=== PATIENT | male | born 1940 | race Caucasian/White ===

== ENCOUNTER → 2020-06-02 | Outpatient (CLI) | payer OTHER ==
[~2020-06-02] MED LIST: FLOMAX0.4 MG PO; GLIMEPIRIDE1 MG PO; LORAZEPAM 1 MG T1 MG PO; METFORMIN HCL1000 MG PO; NEURIVA DE-STR1 EACH PO; OMEPRAZOLE40 MG PO; SIMVASTATIN40 MG PO; TRAZODONE HCL50 MG PO; VITAMIN C1000 MG PO
== END ==
LOC: LAB 08:52
PROVIDERS: ATTEND Orthopaedic Surgery
DX: Z01.812 Encounter for preprocedural laboratory examination (principal); Z20.822 Contact with and (suspected) exposure to COVID-19

== ENCOUNTER 2020-06-07 08:56 | Observation (INO) | payer OTHER ==
[2020-06-02 09:07] LABS: HEMOGLOBIN 14.3 gm/dL (14.0-18.0); MCH 30.5 pg (26.0-34.0); MCHC 33.2 g/dL (28.0-37.0); MCV 91.9 fL (80.0-100.0); RBC 4.68 mil/uL (4.50-6.00); RDW 13.7 % (10.5-14.5); WBC 5.5 thou/uL (4.0-11.0)
[2020-06-02 09:13] LABS: CALCIUM 9.5 mg/dL (8.5-10.1); CREATININE 1.3 mg/dL (0.7-1.3)
[2020-06-02 09:29] LABS: URINE BILIRUBIN NEGATIVE (Negative); URINE BLOOD NEGATIVE (Negative); URINE CLARITY CLEAR; URINE COLOR YELLOW; URINE GLUCOSE-RANDOM* NEGATIVE (Negative); URINE KETONES NEGATIVE (Negative); URINE LEUKOCYTES-REFLEX NEGATIVE (Negative); URINE NITRITE-REFLEX NEGATIVE (Negative); URINE PROTEIN (DIPSTICK) NEGATIVE (Negative); URINE SPECIFIC GRAVITY 1.025 (1.005-1.035); URINE UROBILINOGEN 0.2 E.U./dl (0.2-1.0)
[2020-06-02 14:51] LABS: PROTIME 10.3 Seconds (9.3-11.4)
[2020-06-02 15:11] LABS: INR < 0.9
[2020-06-03 20:33] LABS: GLYCOHEMOGLOBIN (HGB A1C) 6.2 % (4.8-5.6)
[~2020-06-07] VITALS: Ht 162.6 cm; Wt 64.4 kg
--- NOTE | ~2020-06-07 | O ---
[facility] [place] [address] OPERATIVE REPORT Name: CAMILA MILES Room #: 448-P REG [facility] M.R.#: [id number] Admission: 06/07/20 Attend Phys: Jones Mclaughlin MD Discharge: Date of : 44 Report #: [id number] THIS REPORT FOR: cc: Chandler Shaw MD, James M. MD Abraham, Scott M. MD ~ DATE OF SERVICE: 06/07/2020 PREOPERATIVE DIAGNOSIS: Left knee osteoarthritis. POSTOPERATIVE DIAGNOSIS: Left knee osteoarthritis. PROCEDURE: Left total knee arthroplasty using Navio robotic program assistant. SURGEON: Jones Mclaughlin MD TWISTHAND: Jayne Simons PA-C INDICATIONS FOR TWISTHAND: Throughout the case, extensive retraction and manipulation of the knee was required. This was afforded to me by my program assistant. ANESTHESIA: LMA with adductor canal block. IMPLANTS: [employer]hew size 5 Journey II BCS cobalt chrome femur, size 3 tibia, size 12 polyethylene, size 35 patella. TOURNIQUET TIME: 56 minutes. ESTIMATED BLOOD LOSS: 25 mL COMPLICATIONS: None. SPECIMENS: None. CONDITION UPON LEAVING THE OPERATING ROOM: Stable. INDICATIONS FOR PROCEDURE: The patient is a 80-year-old gentleman with severe left knee varus osteoarthritis and failed conservative measures for this, and after discussion with him, he elected for left total knee arthroplasty. DESCRIPTION OF PROCEDURE: Risks, benefits, alternatives, complications were discussed in detail with the patient including but not limited to risk of anesthesia, risk of damage to nerves, arteries, blood vessels, risk for infection, bleeding, risk for continued knee pain, need for reoperation. Informed consent was obtained from the patient. Left knee was appropriately [address] [address] OPERATIVE REPORT Name: CAMILA MILES Room #: 448-P [facility] Maria Luisa.#: [id number] Admission: 06/07/20 Attend Phys: Jones Mclaughlin MD Discharge: Date of : 44 Report #: [id number] marked in the preoperative holding area. IV Ancef was given for preoperative antibiotics. He was brought to the operating room and placed in supine position on operating room table. LMA anesthesia was induced without complication. Tourniquet was placed on the left thigh. Left lower extremity was prepped and draped in normal sterile fashion. Timeout was performed properly identifying the patient and procedure as well as instrumentation. All in the operating room were in agreement. Left lower extremity was exsanguinated, tourniquet was inflated. Tourniquet time was 56 minutes. Standard midline approach to the knee was made with 10-blade through the skin. Dissection was taken down sharply to the fascia and deep flaps were developed medially and laterally. Fresh 10-blade was used to make a medial parapatellar arthrotomy and the knee was inspected. There was severe medial compartment osteoarthritis with moderate lateral and patellofemoral osteoarthritis. ACL and PCL were removed sharply. Reference pins were placed in the femur and the tibia. The knee was digitally mapped using the [employer] robotic system. Intraoperative plan was made and we sized the size 5 femur and a size 3 tibia and a 10 spacer. After acceptance of the intraoperative plan, the distal femoral cut was made with a Navio bur. Distal femoral cutting block was pinned in place and chamfer cuts were made. Attention was turned to the tibia. Remainder of the menisci removed with Bovie cautery. Tibial resection guide was pinned in place using the Navio for placement and tibial resection was made. Flexion and extension gaps were then checked and found to be tight medially in flexion and extension. A limited medial release was performed using the pie crust technique and this balanced the knee well. Tibia was sized, found to be a size 3. Size 3 tibial trial was placed, pinned and punched. Size 5 femoral trial was placed and box cut was made. This was then trialed with a size 10 up to a size 12 polyethylene and size 12 polyethylene demonstrated 1-2 millimeter of laxity medially and laterally throughout range of motion of the knee. A 9 mm of bone was resected from the posterior surface of the patella and a size 35 patellar trial button was placed. Knee was taken through range of motion, found to be stable, found to have good patellar tracking. Trial components were removed. Bony ends were thoroughly irrigated with normal saline. A final size 3 tibia, size 5 Journey II BCS cobalt chrome femur and a size 35 patella were cemented in place using standard cementation techniques. While the cement cured, periarticular injection consisting of morphine, ropivacaine, epinephrine, Toradol was placed around the knee joint capsule. After the cement cured, tourniquet was deflated. Hemostasis was obtained with Bovie cautery. A final size 12 polyethylene was placed. Preoperative vancomycin was placed deep in the joint. Fascia was closed with 0 Vicryl. Skin was closed with 2-0 Vicryl, 3-0 Monocryl. Dermabond and a JOSS dressing was applied. The patient tolerated this procedure well and went to recovery room under care of anesthesia postoperatively. By: 06 23 Jones Mclaughlin MD /nt
[2020-06-07 12:15] VITALS: BP 136/84
[2020-06-07 14:07] VITALS: BP 118/88
--- NOTE | 2020-06-07 15:32 | NUR ---
Pt transferred from recovery room approx 1500. Dressing c/d/i. BOBBY hose and SCDs in place. Polar care in place. Pt denies pain at this time. Pt worked with physical therapy and ambulated in the hallway. IVF infusing. Family at bedside. Admission completed. Fall precautions in place. WIll continue to monitor.
[2020-06-07 19:17] VITALS: BP 119/75
--- NOTE | 2020-06-08 00:14 | NUR ---
ASSESSMENT COMPLETED, PT IS VERY PLEASANT AND COOPERATIVE, DENIES PAIN. VOIDING PER URINAL. AFEBRILE. JOSS DRSG AND TEDS IN PLACE. FLUIDS INFUSING. PROGRESSING TOWARDS CARE GOALS.
[2020-06-08 02:51] VITALS: BP 107/62
[2020-06-08 04:44] VITALS: BP 108/71
[2020-06-08 05:00] LABS: HEMATOCRIT 34.9 % (42.0-52.0); HEMOGLOBIN 11.5 gm/dL (14.0-18.0); MCH 30.2 pg (26.0-34.0); MCV 91.6 fL (80.0-100.0); RBC 3.81 mil/uL (4.50-6.00); RDW 13.8 % (10.5-14.5); WBC 12.1 thou/uL (4.0-11.0)
[2020-06-08 05:11] LABS: CALCIUM 8.1 mg/dL (8.5-10.1); CREATININE 1.3 mg/dL (0.7-1.3); MAGNESIUM 1.7 mg/dL (1.8-2.4); POTASSIUM 4.3 mmol/L (3.5-5.1)
[2020-06-08 08:00] VITALS: BP 115/72
[2020-06-08 08:43] VITALS: BP 115/72
--- NOTE | 2020-06-08 10:21 | NUR ---
ASSESSMENT: CM REVIEWED CHART. PT IS S/P L TKA. PT REPORTS LIVING IN AN APT WITH HIS . PT REPORTS THAT HE HAS NO STEPS HE HAS TO USE TO GET IN THE HOME. PT REPORTS THAT HE HAS A WALKER AT HOME BUT IT HAS NO WHEELS. PT WORKED WITH PHYSICAL THERAPY AND THEY ARE RECOMMENDING A FWW FOR PATIENT. PT REPORTS HAVING NO PREFERENCE OF [employer]. CM NOTIFIED [employer] WHO WILL DELIVER A WALKER TO PATIENTS ROOM. PT REPORTS THAT HE HAS OUTPATIENT THERAPY ARRANGED AT [facility] FOR TOMORROW AT 1000. PT DID WELL WITH PHYSICAL THERAPY. PLANS ARE FOR PATIENT TO DISCHARGE HOME TODAY. CASE CLOSED.
[2020-06-08 10:23] VITALS: BP 115/72
--- NOTE | 2020-06-08 11:41 | NUR ---
ASSUMED PT CARE THIS AM. PT VSS, A&OX4. PT PLEASANT, MAKING NEEDS KNOWN. PT COOPERATED WITH PHYSICAL THERAPY TODAY. LEFT KNEE WITH DRESSING, BOBBY HOSE, POLAR PACK, AND SCD'S ON. NO SKIN ISSUES NOTED. ON ROOM AIR. MEDS TAKEN WITHOUT ISSUE THIS AM. PT AMBULATORY TO THE BATHROOM WITH WALKER AND GAIT BELT. IV PATENT, FLUIDS INFUSING. USING A URINAL WHEN NEEDED. NO PAIN NOTED.
== END 2020-06-08 14:26 | disposition home or self-care (01) ==
LOC: TBA 08:56 → OR 08:56 → 4S 13:45 → OR 13:46 → 4S 13:46 → OR 14:23 → 4S 06-08 14:26
PROVIDERS: Internal Medicine; ADMIT Orthopaedic Surgery; ATTEND Orthopaedic Surgery
DX: M17.12 Unilateral primary osteoarthritis, left knee (principal); E11.9 Type 2 diabetes mellitus without complications; N40.0 Benign prostatic hyperplasia without lower urinary tract symptoms; F41.9 Anxiety disorder, unspecified; F32.9 Major depressive disorder, single episode, unspecified; K21.9 Gastro-esophageal reflux disease without esophagitis; E78.5 Hyperlipidemia, unspecified; Z79.899 Other long term (current) drug therapy
CPT/HCPCS: 27447; S2900; 50010; 50101; 50415; 50954; 51130; 51225; 51320; 53000; 54118; 56527; 56528; 57095; 57103; 57110; 57127; 57179; 58239; 62110; 62900; 64042; 70005